=== PATIENT | male | born 1980 | race African-American/Black ===

== ENCOUNTER 2019-06-06 22:49 | Emergency (ER) | payer MEDICAID ==
[~2019-06-06] VITALS: Ht 185.4 cm; Wt 54.0 kg
[2019-06-06 23:19] VITALS: BP 155/83
[2019-06-06] MEDS: IBUPROFEN 200 MG TABLET PO ONE (23:30)
[2019-06-06 23:43] LABS: ALBUMIN 3.3 g/dL (3.4-5.0); ANION GAP 6 mmol/L (5-15); CALCIUM 9.4 mg/dL (8.5-10.1); CHLORIDE 108 mmol/L (98-107); CREATININE 0.87 mg/dL (0.7-1.3)
[2019-06-06 23:46] LABS: TROPONIN I < 0.015 ng/mL (0.000-0.045)
[2019-06-06 23:59] LABS: BASOPHILS # (AUTO) 0.08 x10^3/uL (0-0.1); BASOPHILS % (AUTO) 1 % (0-1); EOSINOPHILS # (AUTO) 0.07 x10^3/uL (0-0.4); EOSINOPHILS % (AUTO) 1 % (1-7); LYMPHOCYTES # (AUTO) 2.97 x10^3/uL (1-3.4); LYMPHOCYTES % (AUTO) 36 % (22-44); MD NO; MEAN CORPUSCULAR HEMOGLOBIN 24.1 pg (27.5-34.5); MEAN CORPUSCULAR HGB CONC 30.8 g/dL (33.2-36.2); MEAN CORPUSCULAR VOLUME 78.1 fL (81-97); MEAN PLATELET VOLUME 7.8 fL (7.4-10.4); MONOCYTES # (AUTO) 0.75 x10^3/uL (0.2-0.8); MONOCYTES % (AUTO) 9 % (2-9); NEUTROPHILS % (AUTO) 53 % (42-75); PLATELET COUNT 443 x10^3/uL (130-400); RED BLOOD COUNT 4.98 x10^6/uL (4.38-5.82)
[2019-06-07] MEDS ORDERED: IBUPROFEN 200 MG TABLET ONE (00:39)
[2019-06-07] MEDS: IBUPROFEN 200 MG TABLET PO ONE (00:41)
--- NOTE | 2019-06-07 01:01 | NUR ---
Note santoone in EDM - 06/07/19 at 0104 by PACO PT NOW A&OX4, AWAKE/ALERT. SPEECH CLEAR. PT REFUSING MOTRIN, "I DON'T NEED THAT- I HAVE 800'S AT HOME". PT REQUESTING WORK NOTE WHICH WAS PROVIDED. PT STATES "THIS ISN'T GOING TO DO. THEY WON'T EXCEPT THIS". PT REQUESTING A "FULL SIZED PIECE OF PAPER THAT EXPLAINS WHAT HAPPENED". PT MADE AWARE THAT HE IS WELCOME TO SHARE HIS DC PAPERWORK WITH HIS JOB OR CAN CONCTACT MEDICAL RECORDS FOR FULL RESULTS. PT IN AGREEMENT. DC EDUCATION PROVIDED, PT DEMONSTRATES UNDERSTANDING. PT AMBULATED STEADILY TO DC WITH FAMILY.
--- NOTE | 2019-06-07 01:04 | NUR ---
TASK RN: PT NOW A&OX4, AWAKE/ALERT. SPEECH CLEAR. PT REFUSING MOTRIN, "I DON'T NEED THAT- I HAVE 800'S AT HOME". PT REQUESTING WORK NOTE WHICH WAS PROVIDED. PT STATES "THIS ISN'T GOING TO DO. THEY WON'T EXCEPT THIS". PT REQUESTING A "FULL SIZED PIECE OF PAPER THAT EXPLAINS WHAT HAPPENED". PT MADE AWARE THAT HE IS WELCOME TO SHARE HIS DC PAPERWORK WITH HIS JOB OR CAN CONCTACT MEDICAL RECORDS FOR FULL RESULTS. PT IN AGREEMENT. DC EDUCATION PROVIDED, PT DEMONSTRATES UNDERSTANDING. PT AMBULATED STEADILY TO DC WITH FAMILY.
== END 2019-06-07 01:05 | disposition home or self-care (01) ==
LOC: ED 06-07 00:06
DX: R07.89 Other chest pain (principal); R05 Cough; F17.200 Nicotine dependence, unspecified, uncomplicated
CPT/HCPCS: 36415; 71045; 80048; 82040; 84484; 85025; 99284